=== PATIENT | male | born 1965 | race Caucasian/White ===

== ENCOUNTER 2019-08-23 04:30 | Emergency (ER) | payer BC, OTHER ==
[2019-08-23] MEDS ORDERED: ONDANSETRON 4 MG/2 ML VIAL ONE (05:28)
[2019-08-23] MEDS ORDERED: MORPHINE 4 MG/ML SYR ONE (05:28)
[2019-08-23] MEDS ORDERED: NA CHLORIDE 0.9% 1,000 ML ONE (05:29)
[2019-08-23 06:06] LABS: Absolute Lymphocytes (CBC) 1.7 K/uL (0.7-4.9); Basophils % 0.4 % (0-1.3); Hematocrit 46.8 % (39.6-49.0); Lymphocytes % 16.1 % (15.3-44.8); MPV 9.2 fL (7.6-11.3)
[2019-08-23] MEDS ORDERED: KETOROLAC 30 MG/ML INJ ONE (06:11)
[2019-08-23 06:16] LABS: Potassium 3.6 mmol/L (3.5-5.1)
--- NOTE | 2019-08-23 06:29 | ER ---
Nurse's Notes [facility] Name: Hugo Meehan Age: 54 yrs Sex: Male : 1965 Arrival Date: 08/23/2019 Time: 04:31 Bed 3 Private MD: Diagnosis: Left UVJ calculus with hydroureter and hydronephrosis Presentation: 08/23 04:59 Presenting complaint: Patient states: that at 0300 he started to have left lower back fc pain. Also having urinary frequency and burning. Transition of care: patient was not received from another setting of care. Onset of symptoms was August 23, 2019 at 03:00. Risk Assessment: Do you want to hurt yourself or someone else? Patient reports no desire to harm self or others. Care prior to arrival: None. 04:59 Method Of Arrival: Ambulatory 04:59 Acuity: SHERRI 3 05:06 Initial Sepsis Screen: Does the patient meet any 2 criteria? No. Patient's initial fc sepsis screen is negative. Does the patient have a suspected source of infection? No. Patient's initial sepsis screen is negative. Historical: - Allergies: 05:04 Clindamycin; fc 05:04 PENICILLINS; fc - Home Meds: 05:04 aspirin 81 mg Oral chew 1 tab once daily [Active]; simvastatin 20 mg Oral tab 1 tab fc once daily [Active]; BuSpar Oral 7.5 mg daily [Active]; - PMHx: 05:04 High Cholesterol; Depression; fc - PSHx: 05:04 Cholecystectomy; dental implants; fc - Immunization history:: Last tetanus immunization: unknown, Flu vaccine is not up to date. - Social history:: Smoking status: Patient uses tobacco products, denies chronic smoking, but will smoke occasionally, chewing tobacco, Patient/guardian denies using alcohol, street drugs. - Ebola Screening: : Patient negative for fever greater than or equal to 101.5 degrees Fahrenheit, and additional compatible Ebola Virus Disease symptoms Patient denies exposure to infectious person Patient denies travel to an Ebola-affected area in the 21 days before illness onset. Screenin:12 Abuse screen: Denies threats or abuse. Nutritional screening: No deficits noted. bb Tuberculosis screening: No symptoms or risk factors identified. Fall Risk None identified. Assessment: 05:12 General: Appears in no apparent distress. Behavior is calm, cooperative. Pain: bb Complains of pain in left mid back. Neuro: Level of Consciousness is awake, alert, obeys commands, Oriented to person, place, time, situation. Cardiovascular: Heart tones S1 S2 present Capillary refill < 3 seconds Patient's skin is warm and dry. Pulses are all present. Edema is absent. Respiratory: Airway is patent Respiratory effort is even, unlabored, Respiratory pattern is regular, Breath sounds are clear bilaterally. GI: Abdomen is round Bowel sounds present X 4 quads. Abd is soft and non tender X 4 quads. : Reports burning with urination. Derm: Skin is pink, warm \T\ dry. Musculoskeletal: Circulation, motion, and sensation intact. 05:54 Reassessment: pt actively vomiting after medication administration reassured him an bb provided wet towel for comfort. 06:14 Reassessment: Patient and/or family updated on plan of care and expected duration. Pain ea level reassessed. Patient is alert, oriented x 3, equal unlabored respirations, skin warm/dry/pink. Pt reports pain decreased but now is back. Provider notified, medication order obtained, medication administered, pt tolerated well. 06:36 Reassessment: pt states he is feeling much better pain is gone pt verbalized bb understanding of and agrees to plan of care discharge instructions given pt ambulated with steady gait to exit accompanied by spouse. Vital Signs: 05:04 BP 157 / 94; Pulse 74; Resp 20; Temp 99.0(O); Pulse Ox 98% on R/A; Weight 117.93 kg fc (R); Height 5 ft. 9 in. (175.26 cm) (R); Pain 8/10; 06:27 BP 128 / 77; Pulse 73; Resp 18; Temp 98.5; Pulse Ox 99% on R/A; Pain 3/10; ea 05:04 Body Mass Index 38.39 (117.93 kg, 175.26 cm) ED Course: 04:31 Patient arrived in ED. ds1 05:01 Triage completed. 05:06 Arm band placed on Patient placed in an exam room, on a stretcher. 05:12 Patient has correct armband on for positive identification. Placed in gown. Bed in low bb position. Call light in reach. Side rails up X 1. Adult w/ patient. Pulse ox on. NIBP on. 05:12 No provider procedures requiring assistance completed. bb 05:20 Justin Thompson MD is Attending Physician. pkl 05:50 Initial lab(s) drawn, by me, sent to lab. Inserted saline lock: 20 gauge in right bb antecubital area, using aseptic technique. Blood collected. 05:53 CT Stone Protocol In Process Unspecified. EDMS 06:19 Kristy Brandt, MARCELLA is Primary Nurse. ea 06:26 Lucas Mendoza MD is Referral Physician. pkl 06:40 IV discontinued, intact, bleeding controlled, No redness/swelling at site. Pressure bb dressing applied. Administered Medications: 05:53 Drug: NS 0.9% 1000 ml Route: IV; Rate: 1000 ml; Site: right antecubital; bb 06:40 Follow up: IV Intake: 1000ml bb 05:53 Drug: morphine 4 mg Route: IVP; Site: right antecubital; bb 06:13 Follow up: Response: No adverse reaction; Pain is decreased; RASS: Restless (+1) ea 05:53 Drug: Zofran 4 mg Route: IVP; Site: right antecubital; bb 06:14 Follow up: Response: No adverse reaction ea 06:13 Drug: Ketorolac 30 mg Route: IVP; Site: right antecubital; ea 06:28 Follow up: Response: No adverse reaction; Pain is decreased ea Intake: 06:40 IV: 1000ml; Total: 1000ml. bb Outcome: 06:28 Discharge ordered by . pkl 06:40 Discharged to home ambulatory, with family. bb 06:40 Condition: stable 06:40 Discharge instructions given to patient, Instructed on discharge instructions, follow up and referral plans. medication usage, Demonstrated understanding of instructions, follow-up care, medications, Prescriptions given X 2. 06:40 Patient left the ED. bb Signatures: Dispatcher [employer] EDMS Justin Thompson MD MD pkl Chretien, Felicia, RN RN Mary Eason ds1 Staci Harvey RN RN bb Antunez, Elena, MARCELLA NARANJO ea Corrections: (The following items were deleted from the chart) 05:06 05:04 Pulse 74bpm; Resp 20bpm; Pulse Ox 98% RA; Temp 99.0F Oral; 117.93 kg Reported; fc Height 5 ft. 9 in. Reported; BMI: 38.3; Pain 8/10; fc
--- NOTE | 2019-08-23 06:29 | EDPHYS ---
Physician Documentation [facility] Name: Hugo Meehan Age: 54 yrs Sex: Male : 1965 Arrival Date: 08/23/2019 Time: 04:31 Bed 3 Private MD: ED Physician Justin Thompson HPI: 08/23 05:57 This 54 yrs old Male presents to ER via Ambulatory with complaints of Pain pkl With Urination, Urinary Frequency. 05:57 The patient complains of pain in the left flank. The pain does not radiate. Onset: The pkl symptoms/episode began/occurred just prior to arrival, 2 hour(s) ago. Historical: - Allergies: 05:04 Clindamycin; fc 05:04 PENICILLINS; fc - Home Meds: 05:04 aspirin 81 mg Oral chew 1 tab once daily [Active]; simvastatin 20 mg Oral tab 1 tab fc once daily [Active]; BuSpar Oral 7.5 mg daily [Active]; - PMHx: 05:04 High Cholesterol; Depression; fc - PSHx: 05:04 Cholecystectomy; dental implants; fc - Immunization history:: Last tetanus immunization: unknown, Flu vaccine is not up to date. - Social history:: Smoking status: Patient uses tobacco products, denies chronic smoking, but will smoke occasionally, chewing tobacco, Patient/guardian denies using alcohol, street drugs. - Ebola Screening: : Patient negative for fever greater than or equal to 101.5 degrees Fahrenheit, and additional compatible Ebola Virus Disease symptoms Patient denies exposure to infectious person Patient denies travel to an Ebola-affected area in the 21 days before illness onset. ROS: 05:57 Eyes: Negative for injury, pain, redness, and discharge, ENT: Negative for injury, pkl pain, and discharge, Neck: Negative for injury, pain, and swelling, Cardiovascular: Negative for chest pain, palpitations, and edema, Respiratory: Negative for shortness of breath, cough, wheezing, and pleuritic chest pain, Abdomen/GI: Negative for abdominal pain, nausea, vomiting, diarrhea, and constipation. 05:57 Back: Positive for flank pain, on the left. 05:57 : Negative for urinary symptoms. 05:57 MS/extremity: Negative for acute changes. 05:57 Skin: Negative for rash. 05:57 Neuro: Negative for altered mental status. Exam: 05:57 Head/Face: Normocephalic, atraumatic. Eyes: Pupils equal round and reactive to light, pkl extra-ocular motions intact. Lids and lashes normal. Conjunctiva and sclera are non-icteric and not injected. Cornea within normal limits. Periorbital areas with no swelling, redness, or edema. ENT: Nares patent. No nasal discharge, no septal abnormalities noted. Tympanic membranes are normal and external auditory canals are clear. Oropharynx with no redness, swelling, or masses, exudates, or evidence of obstruction, uvula midline. Mucous membranes moist. Neck: Trachea midline, no thyromegaly or masses palpated, and no cervical lymphadenopathy. Supple, full range of motion without nuchal rigidity, or vertebral point tenderness. No Meningismus. Chest/axilla: Normal chest wall appearance and motion. Nontender with no deformity. No lesions are appreciated. Cardiovascular: Regular rate and rhythm with a normal S1 and S2. No gallops, murmurs, or rubs. Normal PMI, no JVD. No pulse deficits. Respiratory: Lungs have equal breath sounds bilaterally, clear to auscultation and percussion. No rales, rhonchi or wheezes noted. No increased work of breathing, no retractions or nasal flaring. Abdomen/GI: Soft, non-tender, with normal bowel sounds. No distension or tympany. No guarding or rebound. No evidence of tenderness throughout. 05:57 Back: pain, that is moderate, of the left flank. 05:57 : Exam negative for acute changes. 05:57 Musculoskeletal/extremity: Exam is negative for acute changes. 05:57 Skin: Exam negative for rash. 05:57 Neuro: Orientation: is normal, Mentation: is normal, Cranial nerves: grossly normal, Motor: is normal. Vital Signs: 05:04 BP 157 / 94; Pulse 74; Resp 20; Temp 99.0(O); Pulse Ox 98% on R/A; Weight 117.93 kg fc (R); Height 5 ft. 9 in. (175.26 cm) (R); Pain 8/10; 06:27 BP 128 / 77; Pulse 73; Resp 18; Temp 98.5; Pulse Ox 99% on R/A; Pain 3/10; ea 05:04 Body Mass Index 38.39 (117.93 kg, 175.26 cm) fc MDM: 05:20 Patient medically screened. pkl 06:22 Data reviewed: vital signs, nurses notes, lab test result(s), radiologic studies, CT pkl scan. ED course: Patient feeling better. Pain improved . Discussed lab. and CT Scan results with patient. Advised to follow up with Dr. Mendoza in 2 to 3 days. Patient understood instructions. 08/23 05:25 Order name: CBC with Diff; Complete Time: 06:15 pkl 08/23 05:25 Order name: Chem 7; Complete Time: 06:19 pkl 08/23 05:26 Order name: CT Stone Protocol pkl 08/23 06:35 Order name: Urine Dipstick--Ancillary (enter results) em1 Administered Medications: 05:53 Drug: NS 0.9% 1000 ml Route: IV; Rate: 1000 ml; Site: right antecubital; bb 06:40 Follow up: IV Intake: 1000ml bb 05:53 Drug: morphine 4 mg Route: IVP; Site: right antecubital; bb 06:13 Follow up: Response: No adverse reaction; Pain is decreased; RASS: Restless (+1) ea 05:53 Drug: Zofran 4 mg Route: IVP; Site: right antecubital; bb 06:14 Follow up: Response: No adverse reaction ea 06:13 Drug: Ketorolac 30 mg Route: IVP; Site: right antecubital; ea 06:28 Follow up: Response: No adverse reaction; Pain is decreased ea Disposition: 08/23/19 06:28 Discharged to Home. Impression: Left UVJ calculus with hydroureter and hydronephrosis. - Condition is Stable. - Prescriptions for Tylenol- Codeine #3 300-30 mg Oral Tablet - take 1 tablet by ORAL route every 6 hours As needed; 20 tablet. Flomax 0.4 mg Oral Capsule, Sust. Release 24 hr - take 1 capsule by ORAL route once daily 1/2 hour following the same meal each day; 15 capsule. - Medication Reconciliation Form, Thank You Letter, Antibiotic Education, Prescription Opioid Use form. - Follow up: Lucas Mendoza MD; When: 2 - 3 days; Reason: Re-evaluation by your physician. - Problem is new. - Symptoms have improved. Signatures: Dispatcher [employer] EDMS Justin Thompson MD MD pkl Chretien, Felicia RN RN Staci Coon RN RN Kristy Shepard RN RN ea Corrections: (The following items were deleted from the chart) 06:40 06:28 08/23/2019 06:28 Discharged to Home. Impression: Left UVJ calculus with bb hydroureter and hydronephrosis. Condition is Stable. Forms are Medication Reconciliation Form, Thank You Letter, Antibiotic Education, Prescription Opioid Use. Follow up: Lucas Mendoza; When: 2 - 3 days; Reason: Re-evaluation by your physician. Problem is new. Symptoms have improved. pkl
[2019-08-23 06:46] VITALS: BP 128/77; TEMP 98.5; O2SAT 99
[2019-08-23 06:59] LABS: Urine Blood 2+ (NEG); Urine Glucose NEGATIVE (NEG); Urine Protein 1+ (NEG)
--- NOTE | 2019-08-26 13:56 | RAD REPORT ---
EXAM DESCRIPTION: CT - Stone Protocol - 08/23/2019 6:14 am CLINICAL HISTORY: Left flank pain COMPARISON: None Available. TECHNIQUE: CT of the abdomen and pelvis without IV contrast. Evaluation of the solid organs and vasc ulature is suboptimal due to lack of IV contrast. FINDINGS: Lung Bases: The visualized lung bases are clear. Bones: Degenerative change of the spine. Abdomen: Liver: The liver has normal size and decreased density. Gallbladder: Prior cholecystectomy. Spleen, Pancreas, and Adrenal Glands: The spleen, pancreas, and adrenal glands are unremarkable. Kidneys: There is a 0.4 cm obstructing calculus at the left UVJ producing mild left hydroureter and h ydronephrosis. Punctate nonobstructing left nephrolithiasis. No left-sided hydronephrosis Vasculature: Aortoiliac atherosclerosis. IVC is unremarkable. Stomach: The stomach and duodenum have normal course. Other: No free intraperitoneal air. No free fluid or lymphadenopathy. Pelvis: Bladder: Urinary bladder is decompressed. Bowel: No dilated loops of large or small bowel. Scattered diverticula colon. Several mucosal fatty infiltration of the colon and terminal ileum. Appendix: Normal appendix. Pelvis: Prostate is not enlarged. IMPRESSION: 1. There is a 0.4 cm obstructing calculus at the left UVJ producing mild left hydrourete r and hydronephrosis. 2. Submucosal fatty infiltration of the colon and terminal ileum. These findings could be seen with c hronic inflammatory colitis/enteritis. 3. Hepatic steatosis. 4. Punctate nonobstructing left nephrolithiasis. 5. Diverticulosis without evidence of acute diverticulitis. This exam was performed according to our departmental dose-optimization program, which includes autom ated exposure control, adjustment of the mA and/or kV according to patient size and/or use of iterati ve reconstruction technique. Electronically signed by: Montez Guzmán 08/23/2019 6:06 AM CDT Due to temporary technical issues with the PACS/Fluency reporting system, reports are being signed by the in house radiologist as a courtesy to ensure prompt reporting. The interpreting radiologist is f ully responsible for the content of the report.
== END 2019-08-23 06:40 | disposition home or self-care (01) ==
LOC: ER 04:30
DX: N20.2 Calculus of kidney with calculus of ureter (principal); N13.30 Unspecified hydronephrosis; N13.4 Hydroureter; Z88.0 Allergy status to penicillin; Z88.3 Allergy status to other anti-infective agents
CPT/HCPCS: 85025; 80048; 36415; 81003; 76377; 74176; 96375; 96374; 99284; J7030; J2405